=== PATIENT | female | born 1975 | race Caucasian/White ===

== ENCOUNTER 2016-10-26 02:39 | Emergency (ER) | payer OTHER ==
[~2016-10-26] VITALS: Ht 172.7 cm; Wt 71.2 kg
[~2016-10-26 02:39] MED LIST: GLUC1CAP35 PO; MULT-506 PO
[2016-10-26 02:41] VITALS: TEMP 36.8; Ht 172.7 cm; Wt 71.2 kg
[2016-10-26 03:30] LABS: URINE APPEARANCE CLEAR (CLEAR); URINE BILIRUBIN NEG (NEG); URINE COLOR YELLOW; URINE EPITHELIAL CELL AUTO >30 /lpf (0-5); URINE NITRITE NEG (NEG); URINE SPECIFIC GRAVITY 1.008 (1.000-1.030); UROBILINOGEN NEG (NEG); ZZUR CULT IF INDIC CLEAN CATCH YES
[2016-10-26 03:31] LABS: MANUAL MICROSCOPIC REQUIRED? NO; REVIEW REQ? NO
[2016-10-26 03:45] LABS: BASO % 1.8 %; BASO ABS # 0.08 K/uL (0-0.2); EOS % 1.3 %; HEMATOCRIT 32.8 % (37-47); IG% 0.2 %; LYMPH % 32.7 %; LYMPH ABS # 1.46 K/uL (1.2-3.4); MEAN CELL VOLUME 66.9 fL (80-100); MEAN CORPUSCULAR HEMOGLOBIN 19.4 pg (25-34); MEAN PLATELET VOLUME 9.8 fL (7.4-10.4); MONO % 4.7 %; NEUT % 59.3 %; PLATELET COUNT 395 K/uL (130-400); WHITE BLOOD COUNT 4.47 K/uL (4.8-10.8)
[2016-10-26 03:46] LABS: BENZODIAZEPINE, URINE NEG (NEG); COCAINE,URINE NEG (NEG); PHENCYCLIDINE, URINE NEG (NEG)
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
[2016-10-26 04:06] LABS: ALT/SGPT 18 U/L (12-78); AST/SGOT 15 U/L (15-37); BLOOD UREA NITROGEN 9 mg/dl (7-18); CARBON DIOXIDE 23 mmol/L (21-32); CHLORIDE 111 mmol/L (98-107); CREATININE 0.58 mg/dl (0.60-1.20); GLUCOSE 103 mg/dl (70-99); POTASSIUM 3.5 mmol/L (3.5-5.1); SODIUM 144 mmol/L (136-145)
[2016-10-26 04:13] LABS: CALCIUM 8.9 mg/dl (8.5-10.1)
[2016-10-26 04:17] LABS: ALKALINE PHOSPHATASE 77 U/L (45-117)
[2016-10-26 04:18] LABS: ANISOCYTOSIS PRESENT; COMPLETE YES; HYPOCHROMIA PRESENT; MICROCYTOSIS PRESENT
[2016-10-26 04:20] LABS: ACETAMINOPHEN < 2 ug/ml (10-30)
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
[2016-10-26 10:22] VITALS: BP 142/88; PULSE 83; O2SAT 99
--- NOTE | 2016-10-28 15:10 | Pharmacy Progress Note ---
ED Pharmacist Culture FollowUp Date of Service: Oct 28, 2016. Patient was evaluated in the ER on 10/26/16 for mental health evaluation. She did have a UA and Urine Cx performed that day as part of routine ER care. She had not be c/o urinary symptoms. Urine cx did grow > 100,000CFU/mL Klebsiella pneumonia. UA was not very remarkable for infection: clear, negative nitrate, trace LE, 1-5 WBC, +2 bacteria and > 30 epis (likely contamination) Given lack of urinary symptoms, this is likely contamination vs asymptomatic bacteremia for which treatment not indicated. No action required.
== END 2016-10-26 10:22 | disposition home or self-care (01) ==
LOC: C.EDB 02:40 → C.EDA 10:22
DX: R45.851 Suicidal ideations (principal); F10.129 Alcohol abuse with intoxication, unspecified; Y90.7 Blood alcohol level of 200-239 mg/100 ml; F32.9 Major depressive disorder, single episode, unspecified; F60.9 Personality disorder, unspecified; Z80.9 Family history of malignant neoplasm, unspecified; Z83.3 Family history of diabetes mellitus; Z82.49 Family history of ischemic heart disease and other diseases of the circulatory system; Z91.419 Personal history of unspecified adult abuse

== ENCOUNTER 2020-08-31 15:40 | Inpatient (IN) ==
[2020-08-31] MEDS ORDERED: SODIUM CHLORIDE 0.9% 250 ML IV PRN (16:19)
[2020-08-31 16:50] LABS: Alanine Aminotransferase 17 U/L (12-78); Albumin Level 3.5 gm/dl (3.4-5.0); Aspartate Aminotransferase 11 U/L (15-37); BUN Creatinine Ratio 21.7 (10-20); Bilirubin Direct < 0.1 mg/dl (0-0.2); Blood Urea Nitrogen 17 mg/dl (7-18); Calcium 8.1 mg/dl (8.5-10.1); Carbon Dioxide 23 mmol/L (21-32); Chloride 108 mmol/L (98-107); Creatinine Clr Calc Pharmacy 101.4 ml/min; Est GFR (African American) 105.5; Glucose 101 mg/dl (70-99); Magnesium 2.4 mg/dl (1.8-2.4); Potassium 3.7 mmol/L (3.5-5.1); Sodium 138 mmol/L (136-145)
[2020-08-31 16:51] LABS: Prothrombin Time 10.6 Seconds (9.0-12.0)
[2020-08-31 16:53] LABS: Alkaline Phosphatase 91 U/L (45-117); Bilirubin,Total 0.2 mg/dl (0.2-1); Globulin 3.4 gm/dl (2.5-4.0); Phosphorus 3.8 mg/dl (2.5-4.9); Total Protein 6.9 gm/dl (6.4-8.2)
[2020-08-31 16:56] LABS: Pregnancy Test, Serum Negative (Negative)
[2020-08-31 16:57] LABS: Hematocrit (blood only) 12.1 % (37-47); Hemoglobin 3.4 g/dL (12.0-16.0); Mean Corpuscular Hemoglobin 17.8 pg (25-34); Mean Corpuscular Hgb Conc 28.1 g/dL (32-36); Mean Corpuscular Volume 63.4 fL (80-100); Mean Platelet Volume 9.2 fL (7.4-10.4); Nucleated RBC # (auto) 0.06 K/uL (0-0); Nucleated RBC % (auto) 0.7 %; Platelet Count 222 K/uL (130-400); RDW Standard Deviation 53.2 fL (36.4-46.3); Red Blood Count 1.91 M/uL (4.2-5.4); White Blood Count 7.99 K/uL (4.8-10.8)
[2020-08-31 17:05] LABS: Anisocytosis Present; Basophils # (auto) 0.07 K/uL (0-0.2); Basophils % (auto) 0.9 %; Eosinophils # (auto) 0.04 K/uL (0-0.5); Eosinophils % (auto) 0.5 %; Hypochromasia Present; Immature Granulocytes # (auto) 0.03 K/uL (0.00-0.02); Immature Granulocytes % (auto) 0.4 %; Lymphocytes # (auto) 1.64 K/uL (1.2-3.4); Lymphocytes % (auto) 20.5 %; Microcytosis Present; Monocytes # (auto) 0.46 K/uL (0.11-0.59); Monocytes % (auto) 5.8 %; Neutrophils # (auto) 5.75 K/uL (1.4-6.5); Neutrophils % (auto) 71.9 %; Polychromasia 1+; Rouleaux 1+
--- NOTE | 2020-08-31 17:19 | Emergency Department Note ---
Impression & Plan Symptomatic anemia, Abnormal uterine bleeding, Severe anemia ED Provider Note NAME: VINOD GOLDEN AGE: 45 SEX: F ARRIVES VIA: Walk-In INFORMANT: Patient, ED PROVIDER(S): Ricardo Abraham MD CHIEF COMPLAINT: Referred, anemia. PLAN: Disposition: Admit. MEDICAL DECISION MAKING: The patient is a pleasant 45-year-old woman with a past medical history of dysfunctional uterine bleeding that is been ongoing for the past couple of years where she reports she has menstrual-like bleeding at least 3 of 4 weeks/month where she has had blood transfusion most recently in 2019 and had plans to have an IUD to control bleeding after per her report a negative biopsy but because of the COVID-19 pandemic this got delayed, now presents to the emergency department after having outpatient blood work showing a hemoglobin of 3.5. The patient c annot recall the last time she did have blood work. She reports feeling weak and easily short of breath with minimal exertion with slight lightheadedness at times. Otherwise she denies any fevers, chills, cough, congestion, GI or symptoms. She reports she is not bleeding at this time and last finished bleeding several days ago. Given her outpatient blood work she was consented for blood transfusion and typed and crossed for 4 units though she may require more. She is in agreement with plan for admission. Blood work in the emergency department confirm her severe anemia with H/H 3.4/12.1. Platelets within normal limits. INR is normal. Chemistry without metabolic acidosis. LFTs are unremarkable. Covid-19 PCR negative. Given no active vaginal bleeding and benign abdominal exam, pelvic exam and imaging deferred at this time. Case was discussed with Unique Johnson, [facility] PAC, with Dr. Lennon, [facility] hospitalist who will evaluate the patient for admission. Triage Nursing notes reviewed and agree them. Additional history obtained from [facility] records. Prior medical records reviewed Vital Signs: reviewed and remarkable for no significant abnormalities Differential diagnosis: Infection, dehydration, metabolic abnormality, hypo/hyperglycemia, electrolyte disturbance, anemia, hypoxia, cardiac sources, intracerebral event, toxicologic, neurologic, as well as other pathologies. ER treatment provided: See below. Diagnostics interpreted by me: ECG: NSR, 85 bpm, no ectopy, no overt ST elevation or depression. Cardiac Monitoring: An order for continuous cardiac monitoring was placed and demonstrated NSR, 85 bpm, no ectopy. Laboratory studies: See below Imaging studies: See below Consultation(s): Case was discussed with Unique Johnson, [facility] PAC, with Dr. Lennon, [facility] hospitalist who will evaluate the patient for admission. HPI: The patient is a pleasant 45-year-old woman with a past medical history of dysfunctional uterine bleeding that is been ongoing for the past couple of years where she reports she has menstrual-like bleeding at least 3 of 4 weeks/month where she has had blood transfusion most recently in 2019 and had plans to have an IUD to control bleeding after per her report a negative biopsy but because of the COVID-19 pandemic this got delayed, now presents to the emergency department after having outpatient blood work showing a hemoglobin of 3.5. The patient cannot recall the last time she did have blood work. She reports feeling weak and easily short of breath with minimal exertion with slight lightheadedness at times. Otherwise she denies any fevers, chills, cough, congestion, GI or symptoms. She reports she is not bleeding at this time and last finished bleeding several days ago. ROS: See above HPI for pertinent positives & negatives. A total of 10 systems reviewed and were otherwise negative. PAST MEDICAL HISTORY:See Below PAST SURGICAL HISTORY:See Below FAMILY HISTORY:See Below SOCIAL HISTORY:See Below HOME MEDICATIONS:See Below ALLERGIES:See Below VITALS:See Below PHYSICAL EXAMINATION: GENERAL: Awake, alert, fatigued-appearing, in no distress HENT: Normocephalic, atraumatic. Oropharynx with dry mucous membranes and otherwise unremarkable. EYES: Normal conjunctiva. Sclera non-icteric. NECK: Supple. No nuchal rigidity. FROM. No JVD. RESPIRATORY: Clear to auscultation. CARDIAC: Regular rate, normal rhythm. Extremities warm and well perfused. Pulses equal. ABDOMEN: Soft, non-distended. No tenderness to palpation. No rebound or guarding. No masses. RECTAL: Deferred. MUSCULOSKELETAL: Chest examination reveals no tenderness. The back is symmetrical on inspection without obvious abnormality. There is no CVA tenderness to palpation. No joint edema. LOWER EXTREMITIES: Calves are equal size bilaterally and non-tender. No edema. No discoloration. NEURO: Normal sensorium. No sensory or motor deficits noted. SKIN: Moderatre pallor. No rash or jaundice noted. ED COURSE: Critical Care: I have personally spent greater than 45 minutes of critical care time in the direct management of this patient. This includes bedside care, interpretation of diagnostic studies, and testing, discussion with consultants, patient, and family members, and other required patient management activities. This 45 minutes is in excess of all separately billable procedures. Ricardo Abraham MD Past Med/Surg History Medical History Anemia Menorrhagia Surgical History H/O elbow surgery History of dental surgery Family History Father Hypertension Mother Lung cancer Aunt Breast cancer Social History Smoking Status: Never smoker Do You Dip or Chew Tobacco: No; Hx Alcohol Use: Yes Hx Substance Use: No Preferred Language: Croatian Communication Ability: Effective Overlocker Required: No Beliefs That Will Affect Care: None Current Living Situation: Alone Other Information That Helps Us Care for You: No Feels Safe at Home: Yes Safety Concerns: Feels Safe At This Time Assistive Devices: None Allergies Allergies Allergy/AdvReac Type Severity Reaction Status Date / Time loratadine Allergy Severe "CAUSED A Verified 08/31/20 16:52 MIGRAINE HEADACHE" ADHESIVE TAPE Allergy Mild HIVES Uncoded 08/31/20 16:52 Home Meds Home Medications Medication Instructions Recorded Confirmed ferrous sulfate [Iron (ferrous 325 mg PO DAILY 08/31/20 08/31/20 sulfate)] Results & Data (ED) Vital Signs Vital Signs - 24 hr 08/31/20 15:57 08/31/20 16:19 08/31/20 16:36 Temperature 36.2 C L Temperature Source Temporal Artery Scan Pulse Rate 86 82 Pulse Rate from SpO2 Sensor 83 Respiratory Rate 20 18 Respiratory Effort / Characteristics Non-Labored Respiratory Depth Normal Blood Pressure 133/70 126/76 Blood Pressure Mean 91 92 Pulse Oximetry 99 99 100 Oxygen Delivery Method Room Air Sepsis Recent Fever Within 48 Hours No Sepsis New/Unexplained Change in Mental Status N/A Sepsis Action Taken by Nursing No Action Required 08/31/20 17:00 08/31/20 17:30 Temperature Temperature Source Pulse Rate 82 89 Pulse Rate from SpO2 Sensor 82 83 Respiratory Rate 19 22 Respiratory Effort / Characteristics Respiratory Depth Blood Pressure 128/69 128/68 Blood Pressure Mean 88 88 Pulse Oximetry 100 100 Oxygen Delivery Method Sepsis Recent Fever Within 48 Hours Sepsis New/Unexplained Change in Mental Status Sepsis Action Taken by Nursing Laboratory Data Attestation: I reviewed the patient's lab results. Result diagrams: 08/31/20 16:16 08/31/20 16:16 Lab Results 08/31/20 08/31/20 08/31/20 Range/Units 16:16 16:16 16:16 WBC 7.99 (4.8-10.8) K/uL RBC 1.91 L (4.2-5.4) M/uL Hgb 3.4 L* (12.0-16.0) g/dL Hct 12.1 L* (37-47) % MCV 63.4 L (80-100) fL MCH 17.8 L (25-34) pg MCHC 28.1 L (32-36) g/dL RDW Std Deviation 53.2 H (36.4-46.3) fL RDW Coeff of Brandin 23.0 H (11.5-14.5) % Plt Count 222 (130-400) K/uL MPV 9.2 (7.4-10.4) fL Immature Gran % (Auto) 0.4 % Neut % (Auto) 71.9 % Lymph % (Auto) 20.5 % Jewell % (Auto) 5.8 % Eos % (Auto) 0.5 % Baso % (Auto) 0.9 % Neut # (Auto) 5.75 (1.4-6.5) K/uL Lymph # (Auto) 1.64 (1.2-3.4) K/uL Jewell # (Auto) 0.46 (0.11-0.59) K/uL Eos # (Auto) 0.04 (0-0.5) K/uL Baso # (Auto) 0.07 (0-0.2) K/uL Immature Gran # (Auto) 0.03 H (0.00-0.02) K/uL Absolute Nucleated RBC 0.06 H (0-0) K/uL Nucleated RBC % (auto) 0.7 % Polychromasia 1+ Hypochromasia Present Anisocytosis Present Microcytosis Present Rouleaux 1+ PT 10.6 (9.0-12.0) Seconds INR 1.0 (0.9-1.1) Sodium (136-145) mmol/L Potassium (3.5-5.1) mmol/L Chloride (98-107) mmol/L Carbon Dioxide (21-32) mmol/L Anion Gap (3-11) BUN (7-18) mg/dl Creatinine (0.6-1.2) mg/dl Est Cr Clr Drug Dosing ml/min Est GFR ( Amer) Est GFR (Non-Af Amer) BUN/Creatinine Ratio (10-20) Glucose (70-99) mg/dl Calcium (8.5-10.1) mg/dl Phosphorus (2.5-4.9) mg/dl Magnesium (1.8-2.4) mg/dl Iron (35-150) mcg/dl TIBC (250-450) mcg/dl Transferrin (200-360) mg/dl Ferritin (8-388) ng/ml Total Bilirubin (0.2-1) mg/dl Direct Bilirubin (0-0.2) mg/dl AST (15-37) U/L ALT (12-78) U/L Alkaline Phosphatase (45-117) U/L Total Protein (6.4-8.2) gm/dl Albumin (3.4-5.0) gm/dl Globulin (2.5-4.0) gm/dl Albumin/Globulin Ratio (0.9-2) HCG, Qual (Negative) COVID-19 Eval Order SARS-CoV-2 (PCR) (Negative) Influenza Type A (PCR) (Neg) Influenza Type B (PCR) (Neg) RSV (RT-PCR) (Neg) Blood Type O Negative Antibody Screen POSITIVE A Antibody Identification Anti-D Antigen Identification E Antigen - NEGATIVE Crossmatch See Detail 08/31/20 08/31/20 08/31/20 Range/Units 16:16 16:16 16:16 WBC (4.8-10.8) K/uL RBC (4.2-5.4) M/uL Hgb (12.0-16.0) g/dL Hct (37-47) % MCV (80-100) fL MCH (25-34) pg MCHC (32-36) g/dL RDW Std Deviation (36.4-46.3) fL RDW Coeff of Brandin (11.5-14.5) % Plt Count (130-400) K/uL MPV (7.4-10.4) fL Immature Gran % (Auto) % Neut % (Auto) % Lymph % (Auto) % Jewell % (Auto) % Eos % (Auto) % Baso % (Auto) % Neut # (Auto) (1.4-6.5) K/uL Lymph # (Auto) (1.2-3.4) K/uL Jewell # (Auto) (0.11-0.59) K/uL Eos # (Auto) (0-0.5) K/uL Baso # (Auto) (0-0.2) K/uL Immature Gran # (Auto) (0.00-0.02) K/uL Absolute Nucleated RBC (0-0) K/uL Nucleated RBC % (auto) % Polychromasia Hypochromasia Anisocytosis Microcytosis Rouleaux PT (9.0-12.0) Seconds INR (0.9-1.1) Sodium 138 (136-145) mmol/L Potassium 3.7 (3.5-5.1) mmol/L Chloride 108 H (98-107) mmol/L Carbon Dioxide 23 (21-32) mmol/L Anion Gap 7.0 (3-11) BUN 17 (7-18) mg/dl Creatinine 0.79 (0.6-1.2) mg/dl Est Cr Clr Drug Dosing 101.4 ml/min Est GFR ( Amer) 105.5 Est GFR (Non-Af Amer) 91.0 BUN/Creatinine Ratio 21.7 H (10-20) Glucose 101 H (70-99) mg/dl Calcium 8.1 L (8.5-10.1) mg/dl Phosphorus 3.8 (2.5-4.9) mg/dl Magnesium 2.4 (1.8-2.4) mg/dl Iron 209 H Cancelled (35-150) mcg/dl TIBC 509 H Cancelled (250-450) mcg/dl Transferrin 411 H Cancelled (200-360) mg/dl Ferritin 0.8 L Cancelled (8-388) ng/ml Total Bilirubin 0.2 (0.2-1) mg/dl Direct Bilirubin < 0.1 (0-0.2) mg/dl AST 11 L (15-37) U/L ALT 17 (12-78) U/L Alkaline Phosphatase 91 (45-117) U/L Total Protein 6.9 (6.4-8.2) gm/dl Albumin 3.5 (3.4-5.0) gm/dl Globulin 3.4 (2.5-4.0) gm/dl Albumin/Globulin Ratio 1.0 (0.9-2) HCG, Qual Negative (Negative) COVID-19 Eval Order SARS-CoV-2 (PCR) (Negative) Influenza Type A (PCR) (Neg) Influenza Type B (PCR) (Neg) RSV (RT-PCR) (Neg) Blood Type Antibody Screen Antibody Identification Antigen Identification Crossmatch 08/31/20 08/31/20 Range/Units 16:36 16:36 WBC (4.8-10.8) K/uL RBC (4.2-5.4) M/uL Hgb (12.0-16.0) g/dL Hct (37-47) % MCV (80-100) fL MCH (25-34) pg MCHC (32-36) g/dL RDW Std Deviation (36.4-46.3) fL RDW Coeff of Brandin (11.5-14.5) % Plt Count (130-400) K/uL MPV (7.4-10.4) fL Immature Gran % (Auto) % Neut % (Auto) % Lymph % (Auto) % Jewell % (Auto) % Eos % (Auto) % Baso % (Auto) % Neut # (Auto) (1.4-6.5) K/uL Lymph # (Auto) (1.2-3.4) K/uL Jewell # (Auto) (0.11-0.59) K/uL Eos # (Auto) (0-0.5) K/uL Baso # (Auto) (0-0.2) K/uL Immature Gran # (Auto) (0.00-0.02) K/uL Absolute Nucleated RBC (0-0) K/uL Nucleated RBC % (auto) % Polychromasia Hypochromasia Anisocytosis Microcytosis Rouleaux PT (9.0-12.0) Seconds INR (0.9-1.1) Sodium (136-145) mmol/L Potassium (3.5-5.1) mmol/L Chloride (98-107) mmol/L Carbon Dioxide (21-32) mmol/L Anion Gap (3-11) BUN (7-18) mg/dl Creatinine (0.6-1.2) mg/dl Est Cr Clr Drug Dosing ml/min Est GFR ( Amer) Est GFR (Non-Af Amer) BUN/Creatinine Ratio (10-20) Glucose (70-99) mg/dl Calcium (8.5-10.1) mg/dl Phosphorus (2.5-4.9) mg/dl Magnesium (1.8-2.4) mg/dl Iron (35-150) mcg/dl TIBC (250-450) mcg/dl Transferrin (200-360) mg/dl Ferritin (8-388) ng/ml Total Bilirubin (0.2-1) mg/dl Direct Bilirubin (0-0.2) mg/dl AST (15-37) U/L ALT (12-78) U/L Alkaline Phosphatase (45-117) U/L Total Protein (6.4-8.2) gm/dl Albumin (3.4-5.0) gm/dl Globulin (2.5-4.0) gm/dl Albumin/Globulin Ratio (0.9-2) HCG, Qual (Negative) COVID-19 Eval Order CovFluRsv at [facility] SARS-CoV-2 (PCR) NEGATIVE (Negative) Influenza Type A (PCR) Negative (Neg) Influenza Type B (PCR) Negative (Neg) RSV (RT-PCR) Negative (Neg) Blood Type Antibody Screen Antibody Identification Antigen Identification Crossmatch Administered Medications Discontinued Medications Acetaminophen (Acetaminophen 325 Mg Tab) 650 mg PO ONE STA Stop: 08/31/20 17:43 Last Admin: 08/31/20 23:02 Dose: 650 mg Documented by: [id number] Diphenhydramine HCl (Diphenhydramine 50 Mg/Ml Vial) 25 mg IV NOW STA Stop: 08/31/20 17:34 Last Admin: 08/31/20 23:02 Dose: Not Given Documented by: [id number] Diphenhydramine HCl (Diphenhydramine Capsule 25 Mg Cap) Confirm Administered Dose 25 mg .ROUTE .STK-MED ONE Stop: 08/31/20 22:36 Last Admin: 08/31/20 23:02 Dose: 25 mg Documented by: [id number] Furosemide (Furosemide 40 Mg/4 Ml Vial) 20 mg IV TODAY@2200 CANDY Stop: 09/01/20 02:00 Last Admin: 09/01/20 02:22 Dose: 20 mg Documented by: [id number] Norethindrone (Norethindrone 5 Mg Tab) 5 mg PO ONE STA Stop: 08/31/20 22:38 Last Admin: 09/01/20 00:57 Dose: 5 mg Documented by: [id number] Discharge Plan Visit Data Chief Complaint: Abnormal Labs/Diagnostic Testing Stated Complaint: REFERRED BY /[facility]ARD ED Provider: Ricardo Abraham Discharge Problem: Symptomatic anemia, Abnormal uterine bleeding, Severe anemia Patient Disposition: Admitted As Inpatient Discharge Instructions Interventions: ED Discharge Assessment Last Done: 08/31/20 18:25
[2020-08-31 17:23] LABS: Influenza A virus by PCR Negative (Neg); Influenza B virus by PCR Negative (Neg); RSV by PCR Negative (Neg); SARS CoV2 RNA(COVID-19) InHosp NEGATIVE (Negative)
[2020-08-31] MEDS ORDERED: diphenhydrAMINE 50 MG/ML VIAL IV STA (17:33)
--- NOTE | 2020-08-31 17:41 | History & Physical Report ---
Date of Service August 31, 2020 Assessment & Plan (1) Symptomatic anemia: (2) Iron deficiency anemia: (3) Menorrhagia: This is an otherwise healthy 45-year-old who presents to ED secondary to an abnormal outpatient hemoglobin. H&H today 3.4 and 12.1. She is hemodynamically stable. Likely in setting of chronic blood loss secondary to severe menorrhagia. She has been typed and crossed for 4 units, with 2 units ordered to be administered now. Admit to PCU Pretreat with APAP and IV Benadryl Administer 2 units of PRBC Give 20 mg IV Lasix after 2 units Repeat H&H posttransfusion to determine further blood product need Anemia panel reveals significant iron deficiency with ferritin of 0.8, elevated TIBC and transferrin at 509 and 411 respectively, iron 209 Vitamin B12 and folate pending Transvaginal ultrasound ordered Prolactin and TSH in a.m. Consult [employer]W [employer]SE SUPERVISOR secondary to severe menorrhagia Start ferrous sulfate 325 3 times daily with stool softeners -consider IV Venofer once hemoglobin has stabilized Dispo: PCU PCP: Follows Daja Lea - needs to establish with PCP Full Code DVT ppx: none in setting of profound anemia Pt was seen and examined in collaboration with Dr. Lennon, please see addendum History of Present Illness Chief Complaint: Referred by outside provider secondary to abnormal hemoglobin. Primary Care Provider: Flor Agudelo PA-C This is a 45-year-old female who is otherwise healthy and presents to ED secondary to being referred by outside provider secondary to abnormal hemoglobin. She was seen in clinic today by pulmonology A[employer] PRODUCE S[employer]TER on 08/31 secondary to dyspnea on exertion. Per notes were reviewed she reports dyspnea on exertion ever since suffering a viral illness in 03/2020. It is unknown if this was possibly Covid. She also complains of being very fatigued. Upon further questioning it was found that patient has significant uterine bleeding with menstrual cycle. She bleeds approximately 3 weeks out of the month. She had been anemic in the past and required transfusion 01/2019 due to similar episode. Outpatient lab work was obtained and hemoglobin was found to be 3.5. She was then referred to ED. currently she complains of feeling fatigued, tired, weak and shortness with exertion. She states at work she noted she was extremely short of breath when ambulating. She denies any recent illness, fever, chills, sweats, lightheadedness, dizziness, chest pain, palpitations, nausea, vomiting, abdominal pain, abdominal cramping, dysuria, increased urgency or frequency with urination, hematuria, melena or hematochezia. She had been prescribed iron in the past but currently is not taking. She otherwise has no known medical problems. She states in 2018 when she had her first transfusion she was to follow-up with BREW HOUSE SUPERVISOR to get an IUD to help with bleeding, but never followed up. She occasionally sees [facility] providers at [facility] but does not follow with anybody on a regular basis. In ED patient remained hemodynamically stable despite significantly low hemoglobin. Her H&H was 3.4 and 12.1. Her anemia was microcytic and hypochromic. Her BUN/creatinine were stable at 17 and 0.79. She was typed and crossed for 4 units in ED. Allergies Allergy/AdvReac Type Severity Reaction Status Date / Time loratadine Allergy Severe "CAUSED A Verified 08/31/20 16:52 MIGRAINE HEADACHE" adhesive tape Allergy Mild Hives Verified 09/01/20 12:23 Home Medications Medication Instructions Recorded Confirmed Type ferrous sulfate [Iron (ferrous 325 mg PO DAILY 08/31/20 08/31/20 History sulfate)] norethindrone acetate [Aygestin] 5 mg PO DAILY 21 Days #21 tab 09/01/20 Rx Past Med/Surg History Medical History Anemia Menorrhagia Surgical History H/O elbow surgery History of dental surgery Family History Father Hypertension Mother Lung cancer Aunt Breast cancer Social History Smoking Status: Never smoker Hx Alcohol Use: Yes Hx Substance Use: No Preferred Language: Portuguese Communication Ability: Effective Tax Accountant Required: No Beliefs That Will Affect Care: None Current Living Situation: Alone Feels Safe at Home: Yes Assistive Devices: None Review of Systems Review of Systems: All systems reviewed & are unremarkable except as noted in HPI & below Physical Exam Physical Exam: Constitutional: WD/WN, pale, female, vitals as above, NAD, sitting up in bed, pleasant, conversing easily Head: Normocephalic, Atraumatic Eyes: PERRL, conjunctivae normal, anicteric sclerae ENMT: external ear and nose normal, oropharynx normal Neck: trachea midline, no thyromegaly normal visual inspection Respiratory: normal respiratory effort, lungs clear to auscultation, no wheeze, rales, rhonchi. Normal insp/exp effort, no accessory muscle use Cardiovascular: RRR, 1/6 OMEGA noted throughout precordium, likely functional murmur, +1 ankle edema Vessels: no JVD or carotid bruit Chest: normal inspection of chest Abdomen: normal bowel sounds, soft, nontender, no hepatosplenomegaly Musculoskeletal: no cyanosis or clubbing, extremities motor strength 5/5 Skin: no rashes, warm and dry normal turgor Neurologic: PERRL, EOMI, accommodation nl, no face palsy, no dysarthria CN's II-XI intact bilaterally and moves all extremities Psychiatric: A+Ox3, euthymic affect Lymphatic: no cervical or axillary lymphadenopathy : deferred Results & Data Results & Data ([facility]) Vital Signs (Past 12 Hours) Vital Signs Temp Pulse Resp BP Pulse Ox 08/31/20 17:00 82 19 128/69 100 08/31/20 16:36 82 18 126/76 100 08/31/20 16:19 99 08/31/20 15:57 36.2 C L 86 20 133/70 99 Diagnostic Findings ECG Rate (beats per minute): 85 Rhythm: normal sinus COVID-19 Results Results COVID-19 Adm Lab Results: RBC 2.86 M/uL (4.2-5.4) L 09/01/20 WBC 7.63 K/uL (4.8-10.8) 09/01/20 Hgb 8.0 g/dL (12.0-16.0) L 09/01/20 Hct 23.9 % (37-47) L 09/01/20 Plt Count 179 K/uL (130-400) 09/01/20 Neutrophils (%) (Auto) 65.0 % 09/01/20 Lymphocytes (%) (Auto) 27.4 % 09/01/20 Monocytes # (Auto) 0.41 K/uL (0.11-0.59) 09/01/20 Eosinophils # (Auto) 0.10 K/uL (0-0.5) 09/01/20 Immature Granulocyte % (Auto) 0.1 % 09/01/20 Neutrophils # (Auto) 4.96 K/uL (1.4-6.5) 09/01/20 Lymphocytes # (Auto) 2.09 K/uL (1.2-3.4) 09/01/20 Monocytes # (Auto) 0.41 K/uL (0.11-0.59) 09/01/20 Eosinophils # (Auto) 0.10 K/uL (0-0.5) 09/01/20 Basophils # (Auto) 0.06 K/uL (0-0.2) 09/01/20 Immature Granulocyte # (Auto) 0.01 K/uL (0.00-0.02) 09/01/20 Giant Platelets 1+ 09/01/20 Polychromasia 1+ 08/31/20 Hypochromasia Present 09/01/20 Anisocytosis Present 09/01/20 Microcytosis Present 08/31/20 Rouleau 1+ 08/31/20 Na 139 mmol/L (136-145) 09/01/20 K 3.8 mmol/L (3.5-5.1) 09/01/20 Cl 111 mmol/L (98-107) H 09/01/20 CO2 26 mmol/L (21-32) 09/01/20 Anion Gap 2.0 (3-11) L 09/01/20 BUN 15 mg/dl (7-18) 09/01/20 Creatinine 0.79 mg/dl (0.6-1.2) 09/01/20 BUN/Creatinine Ratio 18.8 (10-20) 09/01/20 Glucose Level 89 mg/dl (70-99) 09/01/20 Ca 7.8 mg/dl (8.5-10.1) L 09/01/20 Phosphorus Level 3.8 mg/dl (2.5-4.9) 08/31/20 Total Bilirubin 0.8 mg/dl (0.2-1) 09/01/20 Direct Bilirubin < 0.1 mg/dl (0-0.2) 08/31/20 AST/SGOT 12 U/L (15-37) L 09/01/20 ALT/SGPT 16 U/L (12-78) 09/01/20 Alkaline Phosphatase 85 U/L (45-117) 09/01/20 Total Protein 6.5 gm/dl (6.4-8.2) 09/01/20 Albumin 3.2 gm/dl (3.4-5.0) L 09/01/20 Globulin 3.3 gm/dl (2.5-4.0) 09/01/20 Albumin/Globulin Ratio 1.0 (0.9-2) 09/01/20 Ferritin 0.8 ng/ml (8-388) L 08/31/20 INR 1.0 (0.9-1.1) 08/31/20 COVID-19 PCR NEGATIVE (Negative) 08/31/20 Influenza Virus Type A (PCR) Negative (Neg) 08/31/20 Influenza Virus Type B (PCR) Negative (Neg) 08/31/20 Code Status & VTE Plan Code Status Full Code VTE Prophylaxis Plan VTE Prophylaxis will be ordered: No
[2020-08-31] MEDS ORDERED: ACETAMINOPHEN 325 MG TAB PO STA (17:42)
[2020-08-31 18:12] LABS: Total Iron Binding Capacity 509 mcg/dl (250-450); Transferrin 411 mg/dl (200-360)
[2020-08-31 18:18] LABS: Ferritin 0.8 ng/ml (8-388); Iron 209 mcg/dl (35-150)
[2020-08-31 18:41] LABS: Folate (Folic Acid) > 20.00 ng/ml (>5.38); Vitamin B12 453 pg/ml (193-986)
[2020-08-31] MEDS ORDERED: ALUMINUM/MAGNESIUM SUSP 30 ML UDC PO PRN (18:47)
[2020-08-31] MEDS ORDERED: POLYETHYLENE (MIRALAX) 17 GM PACK PO PRN (18:47)
[2020-08-31] MEDS ORDERED: ACETAMINOPHEN 325 MG TAB PO PRN (18:47)
[2020-08-31] MEDS ORDERED: MAGNESIUM HYDROXIDE SUSP 30 ML UDC PO PRN (18:47)
[2020-08-31] MEDS ORDERED: ONDANSETRON INJ 2 MG/ML 2 ML VIAL IV PRN (18:47)
[2020-08-31] MEDS ORDERED: INFLUENZA VIRUS QUAD VACCINE 0.5 ML SYR IM ONE (19:01)
[2020-08-31] MEDS ORDERED: INFLUENZA ADMINISTRATION CHARGE ONE (19:01)
--- NOTE | 2020-08-31 20:55 | Communication Note ---
Date of Service: August 31, 2020 Patient is a 45-year-old female with history of menorrhagia, iron deficiency anemia presents with history of abnormal labs, dyspnea on exertion. Patient follows with [facility] MISSION WORKER as outpatient. As per patient, patient was told that her uterine wall is thick and was advised to have IUD placement. She had similar episode previously and required blood transfusions. Patient states that she has irregular menstrual bleeding 2 to 3 weeks/month. Currently she states having dyspnea on minimal exertion. Please review HPI for complete details of presentation. She was noted to have a hemoglobin of 3.4 while in ED. Currently denies any active bleeding. INR is within normal limits. Denies any use of blood thinners. Denies any melena, bright red blood in stools. On exam patient is moderately built and nourished, no apparent distress, normocephalic atraumatic, EOMI, +Pallor, lungs--normal breath sounds, clear to auscultation, S1-S2, no murmur, no pedal edema, abdomen soft, nontender, normal bowel sounds, alert, awake, oriented, grossly no focal neurologic deficits. Patient is admitted for management of symptomatic anemia, acute blood loss anemia, menorrhagia. We will transfused 2 units PRBCs and monitor H&H closely. Will obtain transvaginal ultrasound and consult HOME MISSION WORKER. We will also request for anemia work-up including fecal occult. I personally reviewed the record. Patient is interviewed and examined at bedside. Patient's care is coordinated with Unique Johnson PA-C. Please refer to the documentation above for details of patient's presentation and for discussion of other issues.
[2020-08-31] MEDS ORDERED: FUROSEMIDE 40 MG/4 ML VIAL IV SCH (22:00)
[2020-08-31] MEDS ORDERED: diphenhydrAMINE Capsule 25 MG CAP ONE (22:35)
[2020-08-31] MEDS ORDERED: NORETHINDRONE 5 MG TAB PO STA (22:37)
--- NOTE | 2020-08-31 23:14 | OB/GYN Consultation ---
Date of Consultation August 31, 2020 Assessment & Plan (1) Menometrorrhagia: Patient is a 45-year-old G0 female with long history of menometrorrhagia, heavy and prolonged periods. Severely anemic with hemoglobin of 3.4 and symptoms of anemia. Admitted for blood transfusion by medical team. Vital signs stable afebrile No vaginal bleeding on pelvic exam Ultrasound is pending but endometrial thickening and enlarged uterus per pictures. Discussed with the patient what normal cycles,period are. Commended Aygestin 5 mg daily for total of 3 weeks during which time she can be seen in our office for endometrial biopsy and possibly medicated IUD placement. Patient was already planning to have IUD but could not schedule due to her irregular bleedings and Covid pandemic. I discussed importance of follow-up for biopsy to rule out endometrial lesions, polyp, precancer lesion even cancer. Re commended to have a medicated IUD and a follow-up in our office. All questions were answered. (2) Abnormal uterine bleeding: (3) Symptomatic anemia: (4) Iron deficiency anemia: (5) Bulky or enlarged uterus: (6) Thickened endometrium: History of Present Illness Attending Physician: Eugene Lennon MD History of Present Illness Patient is a 45-year-old G0 female who was admitted for severe anemia with hemoglobin of 3 after an episode of heavy vaginal bleeding. She has a long history of menometrorrhagia, irregular, heavy and prolonged periods For the last 2 to 3 years. She does not have regular cycle. She bleeds for 2 to 3 weeks and then stops for a few days and starts again with bleeding whihc lasts for weeks. When she has her cycle it can be very heavy, changing large pad every hour and passing large orange sized clots. It then slows down and then picks up again to be heavy. It stopped around 4 -5 days ago and it has been very mild and spotting. She denies pelvic pain, discomfort. She was at work, [employer] and felt very dizzy tired and went to see her doctor office and her hemoglobin was found to be very low and sent to the ER for blood transfusion she was admitted under medicine and we are waiting for blood transfusions since admission. She denies any history of , pelvic infections, STDs. She has been with same partner for the last 6 years but she has not had sexual intercourse for over a year due to ongoing abnormal uterine bleeding. She denies any signs of vaginal discharge, irritation, smell. She denies any history of hormone use, never used control pills or any other hormones in the past. She has been using condoms and spermicidal gel for contraception. She was admitted in 2019 for similar problem and had blood transfusion and was followed by [facility] IT ACCOUNT MANAGER office. She had endometrial biopsy which was negative and then she had Pap smear on 2019 and it was negative for intraepithelial neoplasia and negative for high-risk HPV. She was recommended medicated IUD, Mirena, but never followed up. She denies any family history of breast, uterine, ovarian cancer. She denies any personal or family history of bleeding disorders, she denies easy bruising, petechia or mucosal bleeding. Allergies Allergy/AdvReac Type Severity Reaction Status Date / Time loratadine Allergy Severe "CAUSED A Verified 08/31/20 16:52 MIGRAINE HEADACHE" ADHESIVE TAPE Allergy Mild HIVES Uncoded 08/31/20 16:52 Home Medications Medication Instructions Recorded Confirmed Type ferrous sulfate [Iron (ferrous 325 mg PO DAILY 08/31/20 08/31/20 History sulfate)] Patient History Medical History Anemia Menorrhagia Surgical History H/O elbow surgery History of dental surgery Family History Father Hypertension Mother Lung cancer Aunt Breast cancer Social History Smoking Status: Never smoker Do You Dip or Chew Tobacco: No; Hx Alcohol Use: Yes Hx Substance Use: No Preferred Language: Spanish Communication Ability: Effective School Counselor Required: No Beliefs That Will Affect Care: None Current Living Situation: Alone Other Information That Helps Us Care for You: No Feels Safe at Home: Yes Safety Concerns: Feels Safe At This Time Assistive Devices: None Review of Systems Review of Systems: All systems reviewed & are unremarkable except as noted in HPI & below Constitutional: + fatigue, + malaise and + weakness Genitourinary: + abnormal periods, + bleeding between periods and + abnormal vaginal bleeding Physical Exam Constitutional: WD/WN, vitals as above (pale) + ill appearing and comfortable Gastrointestinal (Abdomen): normal bowel sounds, soft, nontender, no hepatosplenomegaly Genitourinary: no vaginal lesions, no adnexal mass normal external appearance Speculum/Bimanual Exam: normal appearance of the vagina, normal appearance of the cervix and + abnormal uterine size (enlarged at 1-12 wks size and tender) Results & Data ([facility]) Vital Signs (Past 12 Hours) Vital Signs Temp Pulse Pulse Resp BP BP Pulse Ox 08/31/20 18:55 36.8 C 78 18 123/63 100 08/31/20 18:00 79 20 124/77 99 08/31/20 17:30 89 22 128/68 100 08/31/20 17:00 82 19 128/69 100 08/31/20 16:36 82 18 126/76 100 08/31/20 16:19 99 08/31/20 15:57 36.2 C L 86 20 133/70 99 Laboratory Results Lab Results 08/31/20 08/31/20 08/31/20 Range/Units 16:16 16:16 16:16 WBC 7.99 (4.8-10.8) K/uL RBC 1.91 L (4.2-5.4) M/uL Hgb 3.4 L* (12.0-16.0) g/dL Hct 12.1 L* (37-47) % MCV 63.4 L (80-100) fL MCH 17.8 L (25-34) pg MCHC 28.1 L (32-36) g/dL RDW Std Deviation 53.2 H (36.4-46.3) fL RDW Coeff of Brandin 23.0 H (11.5-14.5) % Plt Count 222 (130-400) K/uL MPV 9.2 (7.4-10.4) fL Immature Gran % (Auto) 0.4 % Neut % (Auto) 71.9 % Lymph % (Auto) 20.5 % [place] % (Auto) 5.8 % Eos % (Auto) 0.5 % Baso % (Auto) 0.9 % Neut # (Auto) 5.75 (1.4-6.5) K/uL Lymph # (Auto) 1.64 (1.2-3.4) K/uL [place] # (Auto) 0.46 (0.11-0.59) K/uL Eos # (Auto) 0.04 (0-0.5) K/uL Baso # (Auto) 0.07 (0-0.2) K/uL Immature Gran # (Auto) 0.03 H (0.00-0.02) K/uL Absolute Nucleated RBC 0.06 H (0-0) K/uL Nucleated RBC % (auto) 0.7 % Polychromasia 1+ Hypochromasia Present Anisocytosis Present Microcytosis Present Rouleaux 1+ PT 10.6 (9.0-12.0) Seconds INR 1.0 (0.9-1.1) Sodium (136-145) mmol/L Potassium (3.5-5.1) mmol/L Chloride (98-107) mmol/L Carbon Dioxide (21-32) mmol/L Anion Gap (3-11) BUN (7-18) mg/dl Creatinine (0.6-1.2) mg/dl Est Cr Clr Drug Dosing ml/min Est GFR ( Amer) Est GFR (Non-Af Amer) BUN/Creatinine Ratio (10-20) Glucose (70-99) mg/dl Calcium (8.5-10.1) mg/dl Phosphorus (2.5-4.9) mg/dl Magnesium (1.8-2.4) mg/dl Iron (35-150) mcg/dl TIBC (250-450) mcg/dl Transferrin (200-360) mg/dl Ferritin (8-388) ng/ml Total Bilirubin (0.2-1) mg/dl Direct Bilirubin (0-0.2) mg/dl AST (15-37) U/L ALT (12-78) U/L Alkaline Phosphatase (45-117) U/L Total Protein (6.4-8.2) gm/dl Albumin (3.4-5.0) gm/dl Globulin (2.5-4.0) gm/dl Albumin/Globulin Ratio (0.9-2) Vitamin B12 (193-986) pg/ml Folate (>5.38) ng/ml HCG, Qual (Negative) COVID-19 Eval Order SARS-CoV-2 (PCR) (Negative) Influenza Type A (PCR) (Neg) Influenza Type B (PCR) (Neg) RSV (RT-PCR) (Neg) Blood Type O Negative Antibody Screen POSITIVE A Antibody Identification Anti-D Antigen Identification E Antigen - NEGATIVE Crossmatch See Detail 08/31/20 08/31/20 08/31/20 Range/Units 16:16 16:16 16:16 WBC (4.8-10.8) K/uL RBC (4.2-5.4) M/uL Hgb (12.0-16.0) g/dL Hct (37-47) % MCV (80-100) fL MCH (25-34) pg MCHC (32-36) g/dL RDW Std Deviation (36.4-46.3) fL RDW Coeff of Brandin (11.5-14.5) % Plt Count (130-400) K/uL MPV (7.4-10.4) fL Immature Gran % (Auto) % Neut % (Auto) % Lymph % (Auto) % [place] % (Auto) % Eos % (Auto) % Baso % (Auto) % Neut # (Auto) (1.4-6.5) K/uL Lymph # (Auto) (1.2-3.4) K/uL [place] # (Auto) (0.11-0.59) K/uL Eos # (Auto) (0-0.5) K/uL Baso # (Auto) (0-0.2) K/uL Immature Gran # (Auto) (0.00-0.02) K/uL Absolute Nucleated RBC (0-0) K/uL Nucleated RBC % (auto) % Polychromasia Hypochromasia Anisocytosis Microcytosis Rouleaux PT (9.0-12.0) Seconds INR (0.9-1.1) Sodium 138 (136-145) mmol/L Potassium 3.7 (3.5-5.1) mmol/L Chloride 108 H (98-107) mmol/L Carbon Dioxide 23 (21-32) mmol/L Anion Gap 7.0 (3-11) BUN 17 (7-18) mg/dl Creatinine 0.79 (0.6-1.2) mg/dl Est Cr Clr Drug Dosing 101.4 ml/min Est GFR ( Amer) 105.5 Est GFR (Non-Af Amer) 91.0 BUN/Creatinine Ratio 21.7 H (10-20) Glucose 101 H (70-99) mg/dl Calcium 8.1 L (8.5-10.1) mg/dl Phosphorus 3.8 (2.5-4.9) mg/dl Magnesium 2.4 (1.8-2.4) mg/dl Iron 209 H Cancelled (35-150) mcg/dl TIBC 509 H Cancelled (250-450) mcg/dl Transferrin 411 H Cancelled (200-360) mg/dl Ferritin 0.8 L Cancelled (8-388) ng/ml Total Bilirubin 0.2 (0.2-1) mg/dl Direct Bilirubin < 0.1 (0-0.2) mg/dl AST 11 L (15-37) U/L ALT 17 (12-78) U/L Alkaline Phosphatase 91 (45-117) U/L Total Protein 6.9 (6.4-8.2) gm/dl Albumin 3.5 (3.4-5.0) gm/dl Globulin 3.4 (2.5-4.0) gm/dl Albumin/Globulin Ratio 1.0 (0.9-2) Vitamin B12 (193-986) pg/ml Folate (>5.38) ng/ml HCG, Qual Negative (Negative) COVID-19 Eval Order SARS-CoV-2 (PCR) (Negative) Influenza Type A (PCR) (Neg) Influenza Type B (PCR) (Neg) RSV (RT-PCR) (Neg) Blood Type Antibody Screen Antibody Identification Antigen Identification Crossmatch 08/31/20 08/31/20 08/31/20 Range/Units 16:36 16:36 17:44 WBC (4.8-10.8) K/uL RBC (4.2-5.4) M/uL Hgb (12.0-16.0) g/dL Hct (37-47) % MCV (80-100) fL MCH (25-34) pg MCHC (32-36) g/dL RDW Std Deviation (36.4-46.3) fL RDW Coeff of Brandin (11.5-14.5) % Plt Count (130-400) K/uL MPV (7.4-10.4) fL Immature Gran % (Auto) % Neut % (Auto) % Lymph % (Auto) % [place] % (Auto) % Eos % (Auto) % Baso % (Auto) % Neut # (Auto) (1.4-6.5) K/uL Lymph # (Auto) (1.2-3.4) K/uL [place] # (Auto) (0.11-0.59) K/uL Eos # (Auto) (0-0.5) K/uL Baso # (Auto) (0-0.2) K/uL Immature Gran # (Auto) (0.00-0.02) K/uL Absolute Nucleated RBC (0-0) K/uL Nucleated RBC % (auto) % Polychromasia Hypochromasia Anisocytosis Microcytosis Rouleaux PT (9.0-12.0) Seconds INR (0.9-1.1) Sodium (136-145) mmol/L Potassium (3.5-5.1) mmol/L Chloride (98-107) mmol/L Carbon Dioxide (21-32) mmol/L Anion Gap (3-11) BUN (7-18) mg/dl Creatinine (0.6-1.2) mg/dl Est Cr Clr Drug Dosing ml/min Est GFR ( Amer) Est GFR (Non-Af Amer) BUN/Creatinine Ratio (10-20) Glucose (70-99) mg/dl Calcium (8.5-10.1) mg/dl Phosphorus (2.5-4.9) mg/dl Magnesium (1.8-2.4) mg/dl Iron (35-150) mcg/dl TIBC (250-450) mcg/dl Transferrin (200-360) mg/dl Ferritin (8-388) ng/ml Total Bilirubin (0.2-1) mg/dl Direct Bilirubin (0-0.2) mg/dl AST (15-37) U/L ALT (12-78) U/L Alkaline Phosphatase (45-117) U/L Total Protein (6.4-8.2) gm/dl Albumin (3.4-5.0) gm/dl Globulin (2.5-4.0) gm/dl Albumin/Globulin Ratio (0.9-2) Vitamin B12 453 (193-986) pg/ml Folate > 20.00 (>5.38) ng/ml HCG, Qual (Negative) COVID-19 Eval Order CovFluRsv at [facility] SARS-CoV-2 (PCR) NEGATIVE (Negative) Influenza Type A (PCR) Negative (Neg) Influenza Type B (PCR) Negative (Neg) RSV (RT-PCR) Negative (Neg) Blood Type Antibody Screen Antibody Identification Antigen Identification Crossmatch Diagnostic Findings US pending
[2020-09-01 04:51] LABS: Albumin Level 3.2 gm/dl (3.4-5.0); BUN Creatinine Ratio 18.8 (10-20); Calcium 7.8 mg/dl (8.5-10.1); Est GFR (African American) 105.5; Potassium 3.8 mmol/L (3.5-5.1)
[2020-09-01 04:57] LABS: Hematocrit (blood only) 21.1 % (37-47); Hemoglobin 6.7 g/dL (12.0-16.0); Mean Corpuscular Hemoglobin 23.4 pg (25-34); Mean Corpuscular Hgb Conc 31.8 g/dL (32-36); Mean Corpuscular Volume 73.8 fL (80-100); Mean Platelet Volume 9.6 fL (7.4-10.4); Nucleated RBC # (auto) 0.03 K/uL (0-0); Nucleated RBC % (auto) 0.4 %; Platelet Count 179 K/uL (130-400); RDW Coefficient of Variation 24.9 % (11.5-14.5); RDW Standard Deviation 66.6 fL (36.4-46.3); Red Blood Count 2.86 M/uL (4.2-5.4); White Blood Count 7.63 K/uL (4.8-10.8)
[2020-09-01 04:59] LABS: Anisocytosis Present; Basophils # (auto) 0.06 K/uL (0-0.2); Basophils % (auto) 0.8 %; Eosinophils % (auto) 1.3 %; Giant Platelets 1+; Hypochromasia Present; Immature Granulocytes # (auto) 0.01 K/uL (0.00-0.02); Immature Granulocytes % (auto) 0.1 %; Lymphocytes # (auto) 2.09 K/uL (1.2-3.4); Lymphocytes % (auto) 27.4 %; Monocytes # (auto) 0.41 K/uL (0.11-0.59); Monocytes % (auto) 5.4 %; Neutrophils # (auto) 4.96 K/uL (1.4-6.5)
[2020-09-01 05:25] LABS: Bilirubin,Total 0.8 mg/dl (0.2-1); Globulin 3.3 gm/dl (2.5-4.0); Thyroid Stimulating Hormone 3.88 uIu/ml (0.300-4.500); Total Protein 6.5 gm/dl (6.4-8.2)
[2020-09-01 06:50] LABS: Hematocrit (blood only) 23.9 % (37-47); Hemoglobin 7.6 g/dL (12.0-16.0)
[2020-09-01] MEDS: FERROUS SULFATE 325 MG TAB PO SCH ×2 (07:48→12:03)
[2020-09-01] MEDS ORDERED: DOCUSATE SODIUM 100 MG CAP PO SCH (08:00)
--- NOTE | 2020-09-01 08:02 | Ultrasound Report ---
PELVIC ULTRASOUND CLINICAL HISTORY: menorrhagia COMPARISON STUDY: Pelvic ultrasound December 24, 2018. TECHNIQUE: Transabdominal and transvaginal sonography of the pelvis was performed. FINDINGS: The uterus is enlarged, measuring 13.7 x 7 x 7.8 cm. Endometrium is thickened, measuring ap proximately 2.1 cm in thickness although the endometrium is ill-defined. Right ovary measures 3.6 x 2 .4 x 2.7 cm and the left ovary measures 5.5 x 3.4 x 4.5 cm. Several cysts within the left ovary measu res up to 3.9 cm per there is color flow within each ovary. There is no adnexal mass. There is no ryanne e fluid. IMPRESSION: 1. Enlarged heterogeneous uterus. Although nonspecific, the findings raise the possibility of adenomy osis. 2. Thickened endometrium, measuring approximately 2.1 cm in thickness. This is nonspecific and could be correlated with phase of menstrual cycle. Gynecologic consultation might be considered. 3. Several left ovarian cysts that measure up to 3.9 cm. ACT 112: Negative or not required by law. Electronically signed by: Víctor Barcenas M.D. 09/01/2020 8:01 AM
--- NOTE | 2020-09-01 12:44 | Electrocardiogram Report ---
Test Reason : Blood Pressure : / mmHG Vent. Rate : 085 BPM Atrial Rate : 085 BPM P-R Int : 172 ms QRS Dur : 084 ms QT Int : 378 ms P-R-T Axes : 052 069 045 degrees QTc Int : 449 ms Poor data quality, interpretation may be adversely affected Normal sinus rhythm Normal ECG When compared with ECG of 10-JAN-2020 09:39, T wave amplitude has decreased in Lateral leads Confirmed by Leon Michele ([id number]) on 09/01/2020 12:43:40 PM Referred By: REFERRED SELF Confirmed By:Leon Michele
[2020-09-01] MEDS ORDERED: NORETHINDRONE 5 MG TAB PO ONE (12:45)
--- NOTE | 2020-09-01 13:23 | Discharge Summary ---
Date of Service September 01, 2020 Admission HPI Per Admitting Provider This is a 45-year-old female who is otherwise healthy and presents to ED secondary to being referred by outside provider secondary to abnormal hemoglobin. 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 Per notes were reviewed she reports dyspnea on exertion ever since suffering a viral illness in 03/2020. It is unknown if this was possibly Covid. She also complains of being very fatigued. Upon further questioning it was found that patient has significant uterine bleeding with menstrual cycle. She bleeds approximately 3 weeks out of the month. She had been anemic in the past and required transfusion 01/2019 due to similar episode. Outpatient lab work was obtained and hemoglobin was found to be 3.5. She was then referred to ED. currently she complains of feeling fatigued, tired, weak and shortness with exertion. She states at work she noted she was extremely short of breath when ambulating. She denies any recent illness, fever, chills, sweats, lightheadedness, dizziness, chest pain, palpitations, nausea, vomiting, abdominal pain, abdominal cramping, dysuria, increased urgency or frequency with urination, hematuria, melena or hematochezia. She had been prescribed iron in the past but currently is not taking. She otherwise has no known medical problems. She states in 2018 when she had her first transfusion she was to follow-up with SYSTEMS INTEGRATION ANALYST to get an IUD to help with bleeding, but never followed up. She occasionally sees [facility] providers at [facility] but does not follow with anybody on a regular basis. In ED patient remained hemodynamically stable despite significantly low hemoglobin. Her H&H was 3.4 and 12.1. Her anemia was microcytic and hypochromic. Her BUN/creatinine were stable at 17 and 0.79. She was typed and crossed for 4 units in ED. Principal Diagnosis severe symptomatic anemia Metromenorrhagia Discharge Data Allergies Allergy/AdvReac Type Severity Reaction Status Date / Time loratadine Allergy Severe "CAUSED A Verified 08/31/20 16:52 MIGRAINE HEADACHE" adhesive tape Allergy Mild Hives Verified 09/01/20 12:23 Consultations 08/31/20 17:16 ED Decision to Admit Stat 08/31/20 18:30 Consult Gynecology Routine Ordered Studies 08/31/20 18:47 US pelvic complete Routine US transvaginal Routine Hospital Course (1) Symptomatic anemia: (2) Iron deficiency anemia: (3) Menorrhagia: 45-year-old female who presents with profound anemia secondary to severe menorrhagia Acute blood loss anemia due to severe Menorrhagia admitted with HB 3.4 /Hct 12.1 with weeks hx of heavy menstrual bleeding received 4 units of PRBC tx hb improved to 8 with resolution of of symptoms of SOB , TINEO and dizzy spell no complain of tiredness of fatigue hoping to be discharged home today appreciate commutator inspector eval transvaginal USg shows thickened endometrium vaginal bleeding has resolved ,pt been spotting for past few days , no bleeding episode today started on Norethindrone , will be continued for 3 weeks 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 follow up at [facility] will need full pelvic exam , uterine biopsy and IUD placement Full Code DVT ppx: none in setting of profound anemia Disposition ; stable to be discharged home today commutator inspector follow up in 2-3 weeks repeat blood work : cbc with next physican visit Total Time Total Time Spent Total Time Spent (In Minutes): 35 mins Discharge Plan Discharge Items Patient Disposition: Home - Self-Care Reason For Visit: SEVERE ANEMIA Discharge Diagnosis: SEVERE ANEMIA ABNORMAL UTERINE BLEEDING MENORRHAGIA Activity: Resume your previous activity Non-emergency contact: Primary Care Provider Call non-emergency contact if: you have any medication questions Follow-up/Referrals: Nubia Pearson V. [Physician] - 09/08/20 1:00 pm (Dr. Tate is unavailable. Please follow up with Dr. Pearson on Friday09/08/20 at 1:00 pm. Please arrive to the office at 12:45 pm for your appointment. If you are unable to keep this appointment, please call the office to reschedule at [phone]. ) Diet: Regular Addtl Attending Provider Instructions: Please take all medications as instructed on discharge list below. It is recommended that you follow-up with your primary care physician within 1-2 weeks of hospital discharge to ensure you are still doing well. Please call if you have any questions or problems. You can reach a [facility] hospitalist on duty at [facility] 24 hours a day by calling [phone] Lab work : Complete blood count in a week please take Over the counter Vitamins , and Vitamin C ( improves iron absorption ) every day Follow up with finishing lab technician at [facility] Pending Studies at Discharge: No Stand-Alone Forms: My [facility], Smoking Cessation Medications and DC Order Prescriptions: New norethindrone acetate [Aygestin] 5 mg tablet 5 mg PO DAILY 21 Days Qty: 21 RF: 0 Continued ferrous sulfate [Iron (ferrous sulfate)] 325 mg (65 mg iron) Tablet 325 mg PO DAILY RF: 0 Discharge Orders: Discharge Order (Routine); Ordered 09/01/20 Ordered By: Roxane Merritt Admission Data Admit Date/Time: 08/31/20 17:32 Attending Provider: Roxane Merritt Admit Provider: Eugene Lennon Primary Care Provider: PCP,NO Other Providers: Eugene Lennon ; Annemarie Tate Other Interventions: Discharge Summary Assessment (RN) Last Done: 09/01/20 12:19
--- NOTE | 2020-09-01 13:30 | Electrocardiogram Report ---
Test Reason : Blood Pressure : / mmHG Vent. Rate : 058 BPM Atrial Rate : 058 BPM P-R Int : 198 ms QRS Dur : 080 ms QT Int : 460 ms P-R-T Axes : 032 041 025 degrees QTc Int : 451 ms Sinus bradycardia Otherwise normal ECG When compared with ECG of 31-AUG-2020 16:11, (unconfirmed) No significant change was found Confirmed by Leon Michele ([id number]) on 09/01/2020 1:30:21 PM Referred By: REFERRED SELF Confirmed By:Leon Michele
== END 2020-09-01 14:04 | disposition home or self-care (01) | DRG 760 ==
LOC: ED 15:40 → SUATTDRO 17:32 → 2S 17:32